=== PATIENT | female | born 1970 | race Caucasian/White ===

== ENCOUNTER → 2020-08-25 | Outpatient (CLI) | payer OTHER | LOC: COL.RAD 06:43 | DX: K21.9 Gastro-esophageal reflux disease without esophagitis (principal); K58.9 Irritable bowel syndrome, unspecified | CPT/HCPCS: A9541 ==

== ENCOUNTER 2020-09-03 09:49 | Outpatient (RCR) | payer OTHER | END 2020-10-19 | disposition home or self-care (01) | LOC: WSST | DX: R13.11 Dysphagia, oral phase (principal); K21.9 Gastro-esophageal reflux disease without esophagitis; Z88.0 Allergy status to penicillin; Z88.2 Allergy status to sulfonamides; Z88.8 Allergy status to other drugs, medicaments and biological substances ==

== ENCOUNTER → 2020-09-04 | Outpatient (CLI) | payer OTHER | LOC: COL.RAD 09:30 | DX: K59.00 Constipation, unspecified (principal); K58.9 Irritable bowel syndrome, unspecified; K21.9 Gastro-esophageal reflux disease without esophagitis | CPT/HCPCS: A9537; J2805 ==

== ENCOUNTER → 2020-09-08 | Outpatient (CLI) | payer OTHER | LOC: COL.RAD 14:18 | DX: R10.13 Epigastric pain (principal) ==

== ENCOUNTER → 2021-02-10 | Outpatient (CLI) | payer OTHER | LOC: COL.RAD 08:19 | DX: R42 Dizziness and giddiness (principal) | CPT/HCPCS: A9585 ==